=== PATIENT | female | born 1990 | race Caucasian/White ===

== ENCOUNTER 2021-05-31 15:32 | Emergency (ER) | payer BC, SELFPAY ==
[2021-05-31 15:37] VITALS: BP 129/88; PULSE 93; RESP 12; TEMP 36.6; O2SAT 100
--- NOTE | 2021-05-31 15:37 | ED.URI ---
HPI - URI/Sore Throat General Chief Complaint: Upper Respiratory Infection Stated Complaint: SINUS CONGESTION/L EAR CLOGGED Time Seen by Provider: 05/31/21 15:39 Source: patient and RN notes reviewed Mode of arrival: ambulatory Limitations: no limitations History of Present Illness HPI Narrative: 30 y/o female presented for c/o sinus congestion and left ear pressure and cannot hear out of it. Symptoms started about 3 days ago. Taking mucinex and sudafed without relief. Denies cough, sob, wheezing, n/v/d/f/c. Related Data Home Medications Medication Instructions Recorded Confirmed No Home Medications 05/31/21 05/31/21 Allergies Allergy/AdvReac Type Severity Reaction Status Date / Time loratadine Allergy Intermediate Verified 07/11/12 08:29 cephalexin Allergy Unknown Verified 09/25/11 14:35 No Known Allergies Allergy Unverified 09/04/16 10:47 Review of Systems Review of Systems: CONSTITUTIONAL: denies malaise, chills, sweats, fever EYES: Denies visual changes, redness, or discharge ENT: Reports rhinorrhea, congestion, sinus pain, otalgia CARDIOVASCULAR: Denies chest pain, palpitations, edema RESPIRATORY: Denies dyspnea cough, post nasal drainage. GASTROINTESTINAL: Denies abdominal pain, nausea, vomiting, diarrhea SKIN: Denies rash or itching MUSCULOSKELETAL: denies myalgia NEUROLOGIC: Denies headache [facility] Family History Family History Sibling Asthma Family history of seizure disorder Mother Family history of rheumatoid arthritis Family history of hypothyroidism Other Diabetes mellitus Social History Social History Smoking status: Never smoker Alcohol intake: current Exam Narrative: GENERAL: Ill-appearing, nontoxic HEAD: Normocephalic EYES: PERRLA, conjunctivae clear ENT: Mucous membranes moist. TM pearly hayward with dull light reflex bilaterally, left canal erythematous with fluid in TM; no tragal tenderness. Oropharynx erythematous with tonsils 2+, without lesions or exudate, no drooling, no hoarseness, no trismus, uvula midline. No tripod positioning, muffled voice, soft palate or pharyngeal wall bulging NECK: Supple. No lymphadenopathy CHEST: Clear to auscultation, breath sounds equal. No wheezing, rhonchi, rales, or stridor. HEART: Regular rate and rhythm. No murmur heard. SKIN: Warm, dry, no rash. NEURO: Alert and oriented x3. PSYCH: Normal mood and affect Course Course Emergency Course: Patient is aware of diagnosis, understands and agrees to treatment plan. Anticipatory guidance given. Patient agrees to follow-up as directed and is aware of reasons to seek care at the emergency department. Portions of this record may have been created with voice recognition software Level of Care: Express Care Visit Vital Signs Vital signs: reviewed MDM - URI/Sore Throat Differential Diagnosis Differential diagnosis: Likely upper respiratory infection, sinusitis and viral infection Discharge Plan Discharge Clinical Impression: Allergic rhinitis Qualifiers: Allergic rhinitis trigger: unspecified Allergic rhinitis seasonality: seasonal Qualified Code(s): J30.2 - Other seasonal allergic rhinitis Otitis media Qualifiers: Otitis media type: serous Chronicity: acute Laterality: left Recurrence: non-recurrent Qualified Code(s): H65.02 - Acute serous otitis media, left ear Patient Disposition: Home, Self-Care Condition: Stable Instructions: Antibiotic Form Additional Instructions: Recommend Flonase spray and Zyrtec (or Claritin/Debi) Use saline spray before the flonase as needed Tylenol 1000mg every 8 hours as needed for pain Symptomatic treatment includes: rest, fluids, and increase humidity of the air at home. Follow up with your primary care provider next week Go to the ER for worsening symptoms or concerns Prescriptions: No Action No Home Medication
== END 2021-05-31 15:48 | disposition home or self-care (01) ==
PROVIDERS: Emergency Provider Nurse Practitioner Family
DX: J30.9 Allergic rhinitis, unspecified (principal); H65.02 Acute serous otitis media, left ear
CPT/HCPCS: 99211; G0463

== ENCOUNTER 2022-03-08 17:10 | Emergency (ER) | payer BC, SELFPAY ==
[2022-03-08 17:13] VITALS: BP 133/89; PULSE 122; RESP 16; TEMP 37; O2SAT 100
--- NOTE | 2022-03-08 17:16 | ED.URI ---
HPI - URI/Sore Throat General Chief Complaint: Upper Respiratory Infection Stated Complaint: sore throat Time Seen by Provider: 03/08/22 17:16 Source: patient Mode of arrival: ambulatory Limitations: no limitations History of Present Illness HPI Narrative: Ms. Cochran is a 31-year-old female patient presenting to clinic today with complaints of sore throat, fever, chills, body aches times 3 days. She reports that her daughter had strep on . MD elicited complaint: fever, sore throat and other (Chills, body) Related Data Allergies Allergy/AdvReac Type Severity Reaction Status Date / Time loratadine Allergy Intermediate Other Verified 03/08/22 17:15 cephalexin Allergy Unknown Other Verified 03/08/22 17:15 No Known Allergies Allergy Unverified 09/04/16 10:47 Review of Systems Review of Systems: Pertinent positives per HPI. Patient denies any rash, headache, visual changes, dizziness, cough, shortness of breath, chest pain, palpitations, nausea, vomiting, diarrhea, constipation, abdominal pain, or any urinary issues. PMFSH Family History Family History Sibling Asthma Family history of seizure disorder Mother Family history of rheumatoid arthritis Family history of hypothyroidism Other Diabetes mellitus Social History Social History Smoking status: Never smoker Alcohol intake: current Comments At the time of my signature, I reviewed and agree with the nursing past medical, surgical, social, and family history. There is no relevant family history pertinent to the patient complaint. Exam Narrative: General: Well-developed, well nourished, in no apparent distress Head: Normocephalic, atraumatic Eyes: Pupils equally round and reactive to light bilaterally, EOM intact, sclera and conjunctive clear, no discharge, lids normal Ears: TMs intact and clear, ear canals clear, no drainage, grossly hearing normal. Nose: Nares patent, clear discharge, no inflammation, no sinus tenderness. Mouth: Oral pharynx without lesions or masses, good dentition, MMM. Oropharynx red with bilateral tonsillar swelling and white exudate Neck: Supple, trachea midline, enlargement of anterior cervical nodes, no thyroid masses or goiter palpable. Cardio: Regular rate and rhythm, s1 and s2 normal, no murmur appreciated. Resp: Clear to auscultation bilaterally, no rhonchi, rales, wheezing or rubs Course Course Emergency Course: Portions of this record may have been created with voice recognition software. Level of Care: Express Care Visit Vital Signs Vital signs: Vital Signs Temperature 37.0 C 03/08/22 17:13 Pulse Rate 122 H 03/08/22 17:13 Respiratory Rate 16 03/08/22 17:13 Blood Pressure 133/89 03/08/22 17:13 Pulse Oximetry 100 03/08/22 17:13 Oxygen Delivery Room Air 03/08/22 17:13 Temperature 37.0 C 03/08/22 17:13 Pulse Rate 122 H 03/08/22 17:13 Respiratory Rate 16 03/08/22 17:13 Blood Pressure 133/89 03/08/22 17:13 Pulse Oximetry 100 03/08/22 17:13 Oxygen Delivery Room Air 03/08/22 17:13 Vital signs reviewed MDM - URI/Sore Throat MDM Narrative Medical decision making narrative: At the time of visit patient is resting comfortably on the exam table. Strep screen was obtained and was positive in the clinic today. Prescription for amoxicillin was sent to pharmacy and supportive measures were discussed with the patient she voiced understanding of discharge instructions and agrees to treatment plan. Differential Diagnosis Differential diagnosis: Likely upper respiratory infection, otitis media, sinusitis, viral infection, bronchitis, influenza, pharyngitis and other (COVID) Lab Data Labs: Strep Screen Positive Group A Strep *(Reference Range: Negative)* Discharge Plan Discharge Clinical Impres
== END 2022-03-08 17:32 | disposition home or self-care (01) ==
PROVIDERS: Emergency Provider Nurse Practitioner Family
DX: J02.0 Streptococcal pharyngitis (principal)
CPT/HCPCS: 87880; 99213; G0463

== ENCOUNTER 2023-09-04 08:25 | Emergency (ER) | payer BC, SELFPAY ==
[2023-09-04 08:33] VITALS: BP 120/61; PULSE 100; RESP 16; TEMP 36.8; O2SAT 100
[2023-09-04 08:37] VITALS: BP 120/61; PULSE 100; RESP 16; TEMP 36.8; O2SAT 100
[2023-09-04 08:46] LABS: EDUAAPPEAR Cloudy; EDUABILI Negative; EDUABLOOD 3+; EDUACOLOR1 Yellow; EDUAGLUCOSE Negative; EDUAKETONE Negative; EDUALEUKO 3+; EDUANITRATE Negative; EDUAPH 7.5; EDUAPROTEIN 2+; EDUAUROBILI 0.2
--- NOTE | 2023-09-04 08:46 | ED.GENADULT ---
HPI - General Adult General Chief complaint: Urogenital-Female Stated complaint: UTI/Bodyaches Time Seen by Provider: 09/04/23 08:45 Source: patient, RN notes reviewed and old records reviewed Mode of arrival: ambulatory Limitations: no limitations History of Present Illness HPI narrative: Patient presents with complaints of urinary frequency and burning. She reports symptoms began suddenly around midnight, worsened by about 3:00 a.m.. She does have some associated nausea and vomiting. She is unsure if there is blood in her urine, as she is also on her menstrual. She reports that she is having menstrual cramps along with her bladder pain. She has taken Tylenol with poor relief. She does believe that she had a fever, woke up with chills and sweats. She is afebrile on arrival. She denies any injury or trauma. She does report some low back pain Related Data Allergies Allergy/AdvReac Type Severity Reaction Status Date / Time No Known Allergies Allergy Unverified 09/04/23 08:54 Review of Systems Review of Systems: All systems reviewed & are unremarkable except as noted in HPI and below Constitutional: Constitutional: Reports no additional constitutional complaints, Reports fever(s), Reports night sweats and Reports poor appetite ENT: Reports system reviewed and no additional complaints, except as documented Cardiovascular: Cardiovascular: Reports no additional cardiovascular complaints Respiratory: Respiratory: Reports no additional respiratory complaints Gastrointestinal: Gastrointestinal: Reports as per HPI, Reports nausea and Reports vomiting (One episode this morning after drinking Gatorade) Genitourinary: Genitourinary: Reports as per HPI, Reports urinary hesitancy and Reports urinary urgency Musculoskeletal: Musculoskeletal: Reports as per HPI and Reports back pain [facility] Family History Family History Sibling Asthma Family history of seizure disorder Mother Family history of rheumatoid arthritis Family history of hypothyroidism Other Diabetes mellitus Social History Social History Smoking status: Never smoker Alcohol intake: current Comments At the time of my signature, I reviewed and agree with the nursing past medical, surgical, social, and family history. There is no relevant family history pertinent to the patient complaint. Exam Const: General: cooperative, no acute distress, alert, awake and uncomfortable Orientation/consciousness: oriented to person, oriented to place and oriented to time HENMT: Head: normal to inspection Resp: Effort & Inspection: normal respiratory effort and able to speak in complete sentences Auscultation: clear to auscultation bilaterally, no crackles, no rales, no rhonchi and no wheezes Cardio: Palpation: normal PMI Rate: regular rate Rhythm: regular rhythm Heart sounds: S1 normal heart sound present and S2 normal heart sound present GI: GI Palp: Yes Soft to palpation, No Tenderness to palpation present (GI), No Guarding due to palpation present (GI) and No Rigid due to palpation Auscultation: normal bowel sounds : General: Yes Bladder palpation abnormal tender; not distended and Yes no CVA tenderness Back/Spine/Pelvis: Back: no CVA tenderness Neuro: General: oriented to person, oriented to place and oriented to time Cranial nerves: Yes CN's II-XII intact bilaterally Psych: Appearance: grossly normal Thought process: Normal thought process present Insight: Good insight present (Psych) Judgement: Good judgement present (Psych) Course Course Level of Care: Express Care Visit Vital Signs Vital signs: Vital Signs Temperature 98.2 F 09/04/23 08:33 Pulse Rate 100 09/04/23 08:33 Respiratory Rate 16 09/04/23 08:33 Blood Pressure 120/61 09/04/23 08:33 Pulse Oximetry 100 09/04/23 08:33 Oxygen Delivery Room Air 09/04/23 08:
[2023-09-04] MEDS: ONDANSETRON HCL ODT 4 MG TABLET PO (08:57)
== END 2023-09-04 09:36 | disposition home or self-care (01) ==
PROVIDERS: Emergency Provider Nurse Practitioner Family
DX: N30.01 Acute cystitis with hematuria (principal); B96.20 Unspecified Escherichia coli [E. coli] as the cause of diseases classified elsewhere
CPT/HCPCS: 81003; 87077; 87086; 87088; 87186; 99213; A9270; G0463